=== PATIENT | female | born 1975 ===

== ENCOUNTER 2022-11-30 11:53 | Emergency (ER) | payer SELFPAY ==
[2022-11-30] VITALS (7 sets, daily range): BP systolic 139–169; BP diastolic 94–106; PULSE 101–136; RESP 10–20; TEMP 37.1; O2SAT 97–99
[2022-11-30 12:32] LABS: Add Manual Diff / Slide Review NO; Basophils Absolute Auto 100 /uL (0-100); Basophils Percent Auto 0.8 % (0-2); Eosinophils Absolute Auto 200 /uL (0-450); Eosinophils Percent Auto 2.3 % (2-4); Lymphocytes Absolute Auto 3000 /uL (1100-4500); Lymphocytes Percent Auto 43.3 % (25-40); Mean Corpuscular HGB Conc 34.9 % (30-36); Mean Corpuscular Hemoglobin 29.9 PG (26-34); Mean Corpuscular Volume 85.7 fL (80-100); Monocytes Absolute Auto 400 /uL (0-900); Monocytes Percent Auto 6.2 % (3-14); Neutrophils Absolute Auto 3300 /uL (1500-7000); Neutrophils Percent Auto 47.4 % (50-75); Platelet Count 320 X10^3/uL (150-400); Red Blood Cell Count 4.67 X10^6/uL (4.0-5.2); Red Cell Distribution Width 13.3 % (11.6-14.8); White Blood Cell Count 6.9 X10^3/uL (4.5-11.0)
[2022-11-30 12:41] LABS: Prothrombin Time 11.7 SECONDS (10.1-12.7)
[2022-11-30 12:43] LABS: PTT Partial Thromboplastin Tim 30 SECONDS (26-36)
[2022-11-30 12:45] LABS: Alanine Aminotransferase 25 IU/L (<35); Albumin 4.7 g/dL (3.5-5.0); Albumin Globulin Ratio 1.2 (1.0-2.8); Alkaline Phosphatase 71 U/L (38-126); Aspartate Aminotransferase 26 IU/L (14-36); BUN Creatinine Ratio 20.6 (6-22); Bilirubin Total 0.4 mg/dL (0.2-1.3); Blood Urea Nitrogen 13 mg/dL (7-17); Carbon Dioxide 22 mmol/L (22-32); Chloride 104 mmol/L (98-107); Creatine Kinase 84 U/L (30-135); Estimated Glomerular Filt Rate > 60 mL/min (>60); Globulin 3.8 g/dL (1.7-4.1); Glucose 119 mg/dL (70-100); HEMOLYSIS < 15 (0-50); Lipase 112 U/L (23-300); Magnesium 2.1 mg/dL (1.6-2.3); Potassium 3.2 mmol/L (3.4-5.1); Sodium 137 mmol/L (137-145); Total Protein 8.5 g/dL (6.3-8.2)
[2022-11-30 12:55] LABS: Troponin I < 0.012 ng/mL (0.01-0.034)
[2022-11-30 12:55] LABS: D Dimer < 215 ng/ml (<500)
--- NOTE | 2022-11-30 12:55 | ED.ARRPALP ---
HPI - Arrhythmia/Palpitations General Chief Complaint: Arrhythmia/Palpitations Stated Complaint: high HR/palpitations Time Seen by Provider: 11/30/22 12:29 Source: patient Mode of arrival: Ambulatory Limitations: no limitations History of Present Illness HPI narrative: This is a 47-year-old female with no reported medical history who states she was hiking today had height about 6 or 7 miles with seated and had about 15 minutes of elevated heart rate. She states it feels improved. She states about fast, she states it feels better now. She states she is similar episode for several minutes about 10 years ago she thought it was from drinking too much coffee. She would an EKG at that time when she was told was normal. Did not have additional workup. She denies any chest pain no shortness of breath no fevers or chills. No cold cough or congestion. No issues with bowel movements, no issues with urination. She denies any syncope. She felt lightheaded right when she was very elevated with her heart rate. She is not had any swelling in her extremities. Denies any past medical issues no daily medications. No prior surgeries. No known drug allergies. No tobacco, quit alcohol 3 years ago. No illicit or recreational drugs. Does not have a PCP currently. Notes that her mom and grandmother both have thyroid issues. Related Data Home Medications Medication Instructions Recorded Confirmed No Known Home Medications 11/30/22 11/30/22 Allergies Allergy/AdvReac Type Severity Reaction Status Date / Time No Known Drug Allergies Allergy Verified 11/30/22 12:04 Review of Systems Review of Systems ROS Unobtainable: All systems reviewed & are unremarkable except as noted in HPI and below Patient History Social History Smoking Status: Never smoker Smoking Status: Never smoker alcohol intake frequency: 0-2 drinks per day Substance Use Type: does not use Exam Narrative Exam Narrative: GENERAL: Alert and oriented x three, well-nourished female in mild distress. HEENT: Head normocephalic, atraumatic, EOMI, pupils reactive, face symmetric, moist mucous membranes NECK: Supple, full range of motion CARDIOVASCULAR: Slightly tachycardic Regular rate and rhythm without murmurs, rubs or gallops. No JVD. No swelling bilateral lower extremities. RESPIRATORY: Breath sounds equal bilaterally, no wheezes rales or rhonchi. No tachypnea accessory muscle use. Speaks in full sentences. ABDOMEN: Soft, nontender. Normoactive bowel sounds all 4 quadrants. No guarding or rebound, rigidity, no mass : No CVA tenderness EXTREMITIES: Normal range of motion, no clubbing or edema. Neurovascularly intact NEUROLOGICAL: Cranial nerves II through XII grossly intact. Moving all extremities SKIN: Warm, dry, no petechiae, no rashes or lesions. Initial Vital Signs Initial Vital Signs: Vital Signs Pulse Rate 136 H 11/30/22 11:54 Respiratory Rate 20 11/30/22 11:54 Course Orders Ordered: ED Orders 11/30/22 12:20 Complete Blood Count AUTO DIFF Stat Comprehensive Metabolic Panel Stat Free T4, Direct Thyroxine Stat Lipase Stat Magnesium Stat PTT Partial Thromboplastin [place] Stat Prothrombin Time INR Stat TSH w/ Reflex to FT4 Stat Troponin & CK Cardiac Panel Stat 11/30/22 12:25 EKG-12 Lead Stat 11/30/22 12:30 D Dimer Stat 11/30/22 14:07 Urine Microscopic Stat Discontinued Medications Sodium Chloride (Normal Saline 0.9%) 1,000 mls @ 1,000 mls/hr IV BOLUS ONE Stop: 11/30/22 13:28 Last Infusion: 11/30/22 14:43 Dose: 0 mls/hr Documented By: Admin: 11/30/22 13:02 Dose: 1,000 mls/hr Documented By: MARTHA Potassium Chloride (Potassium Chloride 20 Meq/15 Ml Udc) 40 meq PO NOW ONE Stop: 11/30/22 12:58 Last Admin: 11/30/22 13:02 Dose: 40 meq Documented By: MARTHA Vital Signs Vital signs: Vital Signs - 8 hr 11/30/22 12:00 11/30/22 12:16 11/30/22 12:17 Temperature 98.8 F Pulse Rate 107 H 105 H Respiratory Rate 18 Blood Pressure 169/106 H 139/96 H Pulse Oximetry 99 Oxygen Delivery Method Room Air 11/30/22 12:17 11/30/22 11:54 11/30/22 12:30 Temperature Pulse Rate 107 H 136 H Respiratory Rate 12 20 Blood Pressure 143/98 H Pulse Oximetry 97 Oxygen Delivery Method 11/30/22 12:30 11/30/22 12:45 11/30/22 12:45 Temperature Pulse Rate 101 H 103 H Respiratory Rate 10 L 10 L Blood Pressure 147/100 H Pulse Oximetry 97 97 Oxygen Delivery Method Room Air 11/30/22 14:50 Temperature Pulse Rate 101 H Respiratory Rate 14 Blood Pressure 147/94 H Pulse Oximetry 98 Oxygen Delivery Method Room Air MDM - Arrhythmia/Palpitations Lab Data 11/30/22 12:20 11/30/22 12:20 Labs: Lab Results 11/30/22 11/30/22 11/30/22 Range/Units 12:20 12:20 12:20 WBC 6.9 (4.5-11.0) X10^3/uL RBC 4.67 (4.0-5.2) X10^6/uL Hgb 14.0 (12.0-16.0) g/dL Hct 40.0 (36-46) % MCV 85.7 (80-100) fL MCH 29.9 (26-34) PG MCHC 34.9 (30-36) % RDW 13.3 (11.6-14.8) % Plt Count 320 (150-400) X10^3/uL Neut % (Auto) 47.4 L (50-75) % Lymph % (Auto) 43.3 H (25-40) % Hayes % (Auto) 6.2 (3-14) % Eos % (Auto) 2.3 (2-4) % Baso % (Auto) 0.8 (0-2) % Neut # (Auto) 3300 (0780-8069) /uL Lymph # (Auto) 3000 (2677-4684) /uL Hayes # (Auto) 400 (0-900) /uL Eos # (Auto) 200 (0-450) /uL Baso # (Auto) 100 (0-100) /uL PT 11.7 (10.1-12.7) SECONDS INR 1.0 (0.9-1.3) APTT 30 (26-36) SECONDS D-Dimer (<500) ng/ml Sodium 137 (137-145) mmol/L Potassium 3.2 L (3.4-5.1) mmol/L Chloride 104 (98-107) mmol/L Carbon Dioxide 22 (22-32) mmol/L BUN 13 (7-17) mg/dL Creatinine 0.63 (0.52-1.04) mg/dL Estimated GFR > 60 (>60) mL/min BUN/Creatinine Ratio 20.6 (6-22) Glucose 119 H (70-100) mg/dL Calcium 9.0 (8.4-10.2) mg/dL Magnesium 2.1 (1.6-2.3) mg/dL Total Bilirubin 0.4 (0.2-1.3) mg/dL AST 26 (14-36) IU/L ALT 25 (<35) IU/L Alkaline Phosphatase 71 (38-126) U/L Total Creatine Kinase 84 (30-135) U/L Troponin I < 0.012 (0.01-0.034) ng/mL Total Protein 8.5 H (6.3-8.2) g/dL Albumin 4.7 (3.5-5.0) g/dL Globulin 3.8 (1.7-4.1) g/dL Albumin/Globulin Ratio 1.2 (1.0-2.8) Lipase 112 (23-300) U/L TSH (0.47-4.68) uIU/mL Free T4 (0.78-2.19) ng/dL Urine RBC (0-5/HPF) Urine WBC (0-5/HPF) Ur Squamous Epith Cells (0-5/HPF) Urine Bacteria (None) Ur Culture Indicated? 11/30/22 11/30/22 11/30/22 Range/Units 12:20 12:30 14:07 WBC (4.5-11.0) X10^3/uL RBC (4.0-5.2) X10^6/uL Hgb (12.0-16.0) g/dL Hct (36-46) % MCV (80-100) fL MCH (26-34) PG MCHC (30-36) % RDW (11.6-14.8) % Plt Count (150-400) X10^3/uL Neut % (Auto) (50-75) % Lymph % (Auto) (25-40) % Hayes % (Auto) (3-14) % Eos % (Auto) (2-4) % Baso % (Auto) (0-2) % Neut # (Auto) (1885-9525) /uL Lymph # (Auto) (2709-3099) /uL Hayes # (Auto) (0-900) /uL Eos # (Auto) (0-450) /uL Baso # (Auto) (0-100) /uL PT (10.1-12.7) SECONDS INR (0.9-1.3) APTT (26-36) SECONDS D-Dimer < 215 (<500) ng/ml Sodium (137-145) mmol/L Potassium (3.4-5.1) mmol/L Chloride (98-107) mmol/L Carbon Dioxide (22-32) mmol/L BUN (7-17) mg/dL Creatinine (0.52-1.04) mg/dL Estimated GFR (>60) mL/min BUN/Creatinine Ratio (6-22) Glucose (70-100) mg/dL Calcium (8.4-10.2) mg/dL Magnesium (1.6-2.3) mg/dL Total Bilirubin (0.2-1.3) mg/dL AST (14-36) IU/L ALT (<35) IU/L Alkaline Phosphatase (38-126) U/L Total Creatine Kinase (30-135) U/L Troponin I (0.01-0.034) ng/mL Total Protein (6.3-8.2) g/dL Albumin (3.5-5.0) g/dL Globulin (1.7-4.1) g/dL Albumin/Globulin Ratio (1.0-2.8) Lipase (23-300) U/L TSH 5.30 H (0.47-4.68) uIU/mL Free T4 1.17 (0.78-2.19) ng/dL Urine RBC 1-5/hpf (0-5/HPF) Urine WBC 0-1/hpf (0-5/HPF) Ur Squamous Epith Cells None seen (0-5/HPF) Urine Bacteria Occasional (0-1) (None) Ur Culture Indicated? Cult not indicated Point of Care Testing Test Results Negative Urine Dip Bedside Urine Glucose Negative Bedside Urine Bilirubin - Negative Bedside Urine Ketone - Negative Urine Specific [place] 1.005 Bedside Urine Occult Blood +++ Bedside Urine pH 6.0 Bedside Urine Protein - Negative Bedside Urine Urobilinogen - Negative Bedside Urine Nitrite - Negative Bedside Urine Leukocytes - Negative Esterase ECG Data Attestation: I personally reviewed and interpreted this ECG as follows: Prior ECG tracings: not available for review Interpretation: Sinus tachycardia rate of 108 VA 176 QRS 84 and QTC of 460. No acute ST changes. Patient does not have any priors for comparison. MDM Narrative Medical decision making narrative: 47-year-old female who presents with complaint of tachycardia. Patient states was much faster earlier. She is low 100 range currently. She feels much better. Noted to have potassium of 3.2 otherwise normal hemoglobin, no signs of infection normal platelets normal renal function electrolytes otherwise. Mag is 2.1. LFTs and troponin were negative. D-dimer is negative. TSH is elevated 5.3 but this would indicate likely more hypothyroidism which would be less likely to cause tachycardia. Free T4 is pending. Patient politely refused chest x-ray we discussed that we should evaluate more further for structural changes. She very politely continues to refuse. She does have breath sounds equally bilaterally no chest pain or other physical changes that would suggest pneumothorax, infection or other changes today but discussed we can not fully evaluate the structure her heart or lungs without additional imaging. Discharge Plan Departure Patient Disposition: Home Clinical Impression: Tachycardia Activity Restrictions/Additional Instructions: Please follow-up for recheck. Please call for follow-up appointment. Regarding your thyroid levels. Your EKG today showed sinus tachycardia, it did improve here in the department with fluids. It is recommended you have a chest x-ray to evaluate the structure of your lungs and heart to make sure you do not have pneumothorax or other changes that could be dangerous. Would recommend having a Holter monitor or ZIO patch for follow-up. Your TSH is elevated, but your T4 is normal today. Please follow-up with your physician for this they may do some additional workup. Please return for new or worsening symptoms, rate permanent fast or elevated heart rate, chest pain, shortness of breath, passing out, new swelling in your extremities, persistent vomiting, no other GI or urinary symptoms or other new or concerning changes Prescriptions: No Action No Known Home Medications Referrals: Whitney Petty DO [Physician] - Myrtle Murillo DO [Physician] - Stand Alone Forms: Patient Portal/API
[2022-11-30] MEDS: POTASSIUM CHLORIDE 20 MEQ/15 ML UDC 40 MEQ PO (13:02)
[2022-11-30] MEDS: SODIUM CHLORIDE 0.9% 1,000 ML 1000 ML IV (13:02)
[2022-11-30 14:04] LABS: Free T4, Direct Thyroxine 1.17 ng/dL (0.78-2.19)
--- NOTE | 2022-11-30 14:51 | PC.NURSE ---
The patient refused chest x-ray. She also questioned the amount of potassium that she was ordered. She did end up taking the potassium that was ordered.
[2022-11-30 15:14] LABS: Bacteria Urine Occasional (0-1); Culture Indicated Urine Cult Not Indicated; RBC Urine 1-5/HPF (0-5/HPF); Squamous Epithelial Cell Urine None Seen (0-5/HPF); WBC Urine 0-1/HPF (0-5/HPF)
== END 2022-11-30 14:56 | disposition home or self-care (01) ==
PROVIDERS: Emergency Provider Emergency Medicine
DX: R00.0 Tachycardia, unspecified (principal)
CPT/HCPCS: 36415; 80053; 81003; 81015; 81025; 82550; 83690; 83735; 84439; 84443; 84484; 85025; 85379; 85610; 85730; 93005; 93010; 99284